=== PATIENT | female | born 1995 | race Caucasian/White ===

== ENCOUNTER 2017-03-11 00:39 | Emergency (ER) | payer OTHER ==
[~2017-03-11] VITALS: Ht 149.9 cm; Wt 51.3 kg
[2017-03-11 01:14] VITALS: BP 139/70
--- NOTE | 2017-03-11 01:19 | PHYS DOC ---
Past Medical History Past Medical History traumatic brain injury age 13 Additional Past Surgical Histo: Knee surgery Past Surgical History Craniotomy (age 13) for "blood clot" Additional Information: non smoker Adult General Chief Complaint Chief Complaint: ABDOMINAL PAIN HPI HPI Patient is a 22 year old female who presents with right lower abdominal/pelvic pain. Started approx 6 weeks ago. She states initially she had a UTI. Developed a yeast infection. Was seen by DEVELOPMENT MECHANIC at that time. Cleared and then she developed right sided pain. The pain has been present since but increased 10 days ago. Nausea and vomiting once tonight. No diarrhea. No fever. Some burning with urination. No recent travel. Review of Systems Review of Systems Constitutional: Denies fever or chills Eyes: Denies change in visual acuity, redness, or eye pain HENT: Denies nasal congestion or sore throat Respiratory: Denies cough or shortness of breath Cardiovascular: No chest pain GI: POS abdominal pain, nausea, vomiting x 1, NO bloody stools or diarrhea : SOME dysuria; NO hematuria Musculoskeletal: Denies back pain or joint pain Integument: Denies rash or skin lesions Neurologic: Denies headache, focal weakness or sensory changes Current Medications Current Medications Current Medications Medications (Trade) Dose Ordered Sig/Zulma Start Time Stop Time Status Last Admin Dose Admin Sodium Chloride 1,000 ml @ 1,000 mls/hr Q1H 03/11/17 01:30 03/11/17 02:29 03/11/17 01:30 1,000 MLS/HR Allergies Allergies Allergies Coded Allergies Type Severity Reaction Last Updated Verified sulfamethoxazole Allergy Intermediate Rash 03/11/17 Yes trimethoprim Allergy Intermediate Rash 03/11/17 Yes Physical Exam Physical Exam Constitutional: Well developed, well nourished, no acute distress, non-toxic appearance. HENT: Normocephalic, atraumatic, bilateral external ears normal, oropharynx moist, no oral exudates, nose normal. Eyes: PERRLA, EOMI, conjunctiva normal, no discharge. Neck: Normal range of motion, no tenderness, supple, no stridor. Cardiovascular:Heart rate regular rhythm, no murmur Lungs & Thorax: Bilateral breath sounds clear to auscultation Abdomen: Bowel sounds normal, soft, mild tenderness right lower quadrant; no rebound or guarding, no masses, no pulsatile masses. Pelvic exam; Insurance Compliance Analyst present. Right sided pain on palpation; no masses. Mild Cervical motion tenderness. Skin: Warm, dry, no erythema, no rash. Back: No tenderness, no CVA tenderness. Extremities: No tenderness, no cyanosis, no clubbing, ROM intact, no edema. Neurologic: Alert and oriented X 3, normal motor function, normal sensory function, no focal deficits noted. Psychologic: Affect normal, judgement normal, mood normal. Current Patient Data Vital Signs Vital Signs Date Time Temp Pulse Resp B/P (MAP) Pulse Ox O2 Delivery O2 Flow Rate FiO2 03/11/17 01:14 98.5 84 16 139/70 (93) 97 Room Air 98.5 Lab Values Laboratory Tests Test 03/11/17 00:17 03/11/17 00:50 03/11/17 01:15 POC Urine HCG, Qualitative Hcg negative (Negative) Urine Collection Type Unknown Urine Color Yellow Urine Clarity Cloudy Urine pH 6.5 Urine Specific Harvey 1.025 Urine Protein Negative mg/dL (NEG-TRACE) Urine Glucose (UA) Negative mg/dL (NEG) Urine Ketones (Stick) Negative mg/dL (NEG) Urine Blood Negative (NEG) Urine Nitrite Negative (NEG) Urine Bilirubin Negative (NEG) Urine Urobilinogen Dipstick 1.0 mg/dL (0.2 mg/dL) Urine Leukocyte Esterase Small (NEG) Urine RBC 0 /HPF (0-2) Urine WBC 5-10 /HPF (0-4) Urine Squamous Epithelial Cells Mod /LPF Urine Transitional Epithelial Cells Occ /LPF Urine Bacteria Many /HPF (0-FEW) Urine Mucus Mod /LPF White Blood Count 8.9 x10^3/uL (4.0-11.0) Red Blood Count 4.52 x10^6/uL (3.50-5.40) Hemoglobin 13.6 g/dL (12.0-15.5) Hematocrit 40.4 % (36.0-47.0) Mean Corpuscular Volume 89 fL (79-100) Mean Corpuscular Hemoglobin 30 pg (25-35) Mean Corpuscular Hemoglobin Concent 34 g/dL (31-37) Red Cell Distribution Width 13.5 % (11.5-14.5) Platelet Count 267 x10^3/uL (140-400) Neutrophils (%) (Auto) 76 % (31-73) H Lymphocytes (%) (Auto) 16 % (24-48) L Monocytes (%) (Auto) 7 % (0-9) Eosinophils (%) (Auto) 1 % (0-3) Basophils (%) (Auto) 1 % (0-3) Neutrophils # (Auto) 6.7 x10^3uL (1.8-7.7) Lymphocytes # (Auto) 1.4 x10^3/uL (1.0-4.8) Monocytes # (Auto) 0.6 x10^3/uL (0.0-1.1) Eosinophils # (Auto) 0.1 x10^3/uL (0.0-0.7) Basophils # (Auto) 0.0 x10^3/uL (0.0-0.2) Sodium Level 140 mmol/L (136-145) Potassium Level 3.8 mmol/L (3.5-5.1) Chloride Level 103 mmol/L (98-107) Carbon Dioxide Level 27 mmol/L (21-32) Anion Gap 10 (6-14) Blood Urea Nitrogen 16 mg/dL (7-20) Creatinine 0.8 mg/dL (0.6-1.0) Estimated GFR (Cockcroft-Gault) 90.5 Glucose Level 97 mg/dL (70-99) Calcium Level 9.7 mg/dL (8.5-10.1) Laboratory Tests 03/11/17 01:15 Laboratory Tests 03/11/17 01:15 Microbiology 03/11/17 Wet Prep - Final, Complete Course & Med Decision Making Course & Med Decision Making Evaluated patient. Pelvic exam done and cultures sent. At 0130 AM: UCG negative ; US ordered. At 0145 AM: US negative for torsion. Free fluid in pelvis. SHE HAS AN APPT ON SATURDAY WITH HER DEVELOPMENT MECHANIC. Will treat for cervicitis and have her follow up. She is NOT on control. Pelvic cultures taken and pending. Rocephin dosed here and will start on doxycycline. I have spoken with the patient and/or caregivers. I have explained the patient' s condition, diagnosis and treatment plan based on the information available to me at this time. I have answered the patient's and/or caregiver's questions and addressed any concerns. The patient and/or caregivers have as good an understanding of the patient's diagnosis, condition and treatment plan as can be expected at this point. The patient's condition is stable and appropriate for discharge from the emergency department. The patient will pursue further outpatient evaluation with the primary care physician or other designated or consulting physician as outlined in the discharge instructions. The patient and/or caregivers are agreeable to this plan of care and follow-up instructions have been explained in detail. The patient and/or caregivers have received these instructions in written format and have expressed an understanding of the discharge instructions. The patient and/or caregivers are aware that any significant change in condition or worsening of symptoms should prompt an immediate return to this or the closest emergency department or a call to 911. Dragon Disclaimer Dragon Disclaimer This electronic medical record was generated, in whole or in part, using a voice recognition dictation system. Departure Departure Impression: Primary Impression: Cervicitis Disposition: 01 HOME, SELF-CARE Condition: STABLE Referrals: NO PCP (PCP) Patient Instructions: Cervicitis, Ovarian Cyst Additional Instructions: HAVE YOUR UTILITY ENGINEER FOLLOW UP ON YOUR PELVIC CULTURES. Scripts Doxycycline Hyclate (DOXYCYCLINE HYCLATE) 100 Mg Tablet 1 TAB PO BID, #14 TAB Prov: LETTY CARTER MD 03/11/17 LETTY CARTER MD Mar 11, 2017 01:19
[2017-03-11] MEDS ORDERED: IV NORMAL SALINE 1000ML BAG 1,000 ML IV SCH (01:30)
[2017-03-11 01:40] LABS: BASO % 1 % (0-3); EOS % 1 % (0-3); HEMATOCRIT 40.4 % (36.0-47.0); HEMOGLOBIN 13.6 g/dL (12.0-15.5); LYMPH # 1.4 x10^3/uL (1.0-4.8); LYMPH % 16 % (24-48); MEAN CORPUSCULAR HEMOGLOBIN 30 pg (25-35); MEAN CORPUSCULAR HGB CONC 34 g/dL (31-37); MEAN CORPUSCULAR VOLUME 89 fL (79-100); MONO % 7 % (0-9); NEUT % 76 % (31-73); PLATELET COUNT 267 x10^3/uL (140-400); RED BLOOD COUNT 4.52 x10^6/uL (3.50-5.40); RED CELL DISTRIBUTION WIDTH 13.5 % (11.5-14.5); WHITE BLOOD COUNT 8.9 x10^3/uL (4.0-11.0)
[2017-03-11 01:43] LABS: BILIRUBIN,URINE NEGATIVE (NEG); GLUCOSE,URINE NEGATIVE (NEG); NITRITE,URINE NEGATIVE (NEG); PH,URINE 6.5; PROTEIN,URINE NEGATIVE (NEG-TRACE)
[2017-03-11 01:48] LABS: CALCIUM 9.7 mg/dL (8.5-10.1); CREATININE 0.8 mg/dL (0.6-1.0); GFR 90.5; POTASSIUM 3.8 mmol/L (3.5-5.1)
[2017-03-11 01:52] LABS: BACTERIA,URINE MANY /HPF (0-FEW); RBC,URINE 0 /HPF (0-2); SQUAMOUS EPITHELIAL CELL,UR MOD /LPF
[2017-03-11] MEDS ORDERED: DOXY100T PO (02:12)
--- NOTE | 2017-03-11 02:29 | RAD ---
INDICATION: RT ADNEXA PAIN NEG PREG COMPARISON: None. TECHNIQUE: Grayscale and color ultrasound images uterus and adnexa. Transabdominal and transvaginal images obtained. FINDINGS: Uterus: 83 x 56 x 40 mm. Endometrial Stripe: 10 mm. Right Ovary: 34 x 18 x 14 mm. Left Ovary: 25 x 15 x 13 mm. Vascular flow identified to bilateral ovaries. There is some fluid seen within the cervical region and lower uterine segment. There is some free fluid seen within the pelvis. There may be a collapsed cyst right ovary. IMPRESSION: 1. Vascular flow seen to the ovaries. 2. There is some fluid within the cervical region as well as free fluid within the pelvis. Electronically signed by: Link Domínguez MD (03/11/2017 2:25 AM) [facility]
[2017-03-11] MEDS ORDERED: DOXYCYCLINE HYCLATE 100 MG TABLET PO ONE (02:30)
== END 2017-03-11 03:21 | disposition home or self-care (01) ==
LOC: ER 00:39
DX: N72 Inflammatory disease of cervix uteri (principal); Z87.820 Personal history of traumatic brain injury; Z88.2 Allergy status to sulfonamides; Z88.1 Allergy status to other antibiotic agents
CPT/HCPCS: 36415; 76856; 80048; 81001; 81025; 85025; 87086; 87491; 87591; 96361; 96365; 99285; J0690; J7030; Q0111